=== PATIENT | female | born 1940 | race African-American/Black ===

== ENCOUNTER → 2017-11-21 | Outpatient (CLI) | payer MEDICARE, OTHER ==
[~2017-11-21] VITALS: Ht 167.6 cm; Wt 77.0 kg
[~2017-11-21] MED LIST: ADV250 IH; APIX5TAB PO; ASPI81TA39 PO; ATOR40TA28 PO; BUSP15 PO; CARV25 PO; CETI-290 PO; CLON.3 PO; DICL4100G TP; FLUO10TA3 PO; FLUT16H NASAL; FURO40 PO; IPRA4AER IH; MECL12.585 PO; METF500T4 PO; NITR.4 SL; OMEP20 PO; SLOWK8 PO
[2017-11-21 10:53] VITALS: BP 118/72
== END | disposition home or self-care (01) ==
LOC: SRCNTR 10:39
PROVIDERS: ATTEND Internal Medicine Clinical Cardiac Electrophysiology
DX: Z45.02 Encounter for adjustment and management of automatic implantable cardiac defibrillator (principal); I11.0 Hypertensive heart disease with heart failure; I50.22 Chronic systolic (congestive) heart failure; I48.91 Unspecified atrial fibrillation; E78.00 Pure hypercholesterolemia, unspecified; E11.9 Type 2 diabetes mellitus without complications; J44.9 Chronic obstructive pulmonary disease, unspecified; Z79.01 Long term (current) use of anticoagulants; Z79.82 Long term (current) use of aspirin; Z88.8 Allergy status to other drugs, medicaments and biological substances
CPT/HCPCS: G0463

== ENCOUNTER → 2019-01-04 | Outpatient (CLI) | payer MEDICARE, OTHER ==
[~2019-01-04] MED LIST changes: -CETI-290 PO; +CETI10TA59 PO; +METF-960 PO; -METF500T4 PO
[2019-01-04 15:14] LABS: BASOPHILS % (AUTO) 0.5 % (0.0-2.0); EOSINOPHILS % (AUTO) 6.5 % (1.0-6.0); HEMATOCRIT 32.3 % (36-46); HEMOGLOBIN 10.5 g/dL (12.0-16.0); LYMPHOCYTES # (AUTO) 1.7 K/uL (1.0-4.8); LYMPHOCYTES % (AUTO) 34.5 % (22.0-44.0); MEAN CORPUSCULAR HEMOGLOBIN 26.5 pg (26.0-34.0); MEAN CORPUSCULAR HGB CONC 32.3 G/dL (31.0-37.0); MEAN CORPUSCULAR VOLUME 82 fL (80-100); MONOCYTES # (AUTO) 0.7 K/uL (0.1-1.0); MONOCYTES % (AUTO) 14.3 % (2.0-9.0); NEUTROPHILS # (AUTO) 2.2 K/uL (1.8-7.7); NEUTROPHILS % (AUTO) 44.2 % (40.0-70.0); PLATELET COUNT (AUTO) 461 K/uL (150-450); RED BLOOD CELL COUNT(AUTO) 3.95 MIL/uL (4.00-5.20); RED CELL DISTRIBUTION WIDTH 17.2 % (11.5-14.5)
[2019-01-04 16:44] LABS: ALBUMIN 3.5 g/dL (3.4-5.0); BILIRUBIN,TOTAL 0.5 mg/dL (0.1-1.0); CALCIUM, TOTAL 9.7 mg/dL (8.8-10.5); CHOL/HDL RATIO 3.6 (3.9-5.7); CREATININE 1.83 mg/dL (0.60-1.30); MAGNESIUM 2.2 mg/dL (1.80-2.40); THYROID STIMULATING HORMONE 1.01 uIU/mL (0.36-3.74); TOTAL PROTEIN, SERUM 8.2 g/dL (6.4-8.2)
== END | disposition home or self-care (01) ==
LOC: LABPV 14:39
PROVIDERS: ATTEND Internal Medicine Cardiovascular Disease
DX: E55.9 Vitamin D deficiency, unspecified (principal); I11.0 Hypertensive heart disease with heart failure; I50.9 Heart failure, unspecified; E11.9 Type 2 diabetes mellitus without complications; D56.5 Hemoglobin E-beta thalassemia
CPT/HCPCS: 82306; 83036; 83735; 84443

== ENCOUNTER → 2019-09-20 | Outpatient (CLI) | payer MEDICARE, OTHER ==
[~2019-09-20] VITALS: Ht 172.7 cm; Wt 69.0 kg
[~2019-09-20] MED LIST changes: -ASPI81TA39 PO; -ATOR40TA28 PO; +CARV12 PO; -CARV25 PO; -CLON.3 PO; +CLON0.1T83 PO; +DULO20CA30 PO; +FERR-89 PO; -FLUO10TA3 PO; +FURO20 PO; -FURO40 PO; +GLIP5 PO; -MECL12.585 PO; -METF-960 PO; -NITR.4 SL; +NITR0.4T52 SL; +POTA8TAB60 PO; +ROSU10TA22 PO; -SLOWK8 PO
[2019-09-20 15:58] VITALS: BP 148/78
== END | disposition home or self-care (01) ==
LOC: SRCNTR 11:23
PROVIDERS: ATTEND Internal Medicine Clinical Cardiac Electrophysiology
DX: I48.91 Unspecified atrial fibrillation (principal); E78.00 Pure hypercholesterolemia, unspecified; I11.0 Hypertensive heart disease with heart failure; I50.9 Heart failure, unspecified; E11.9 Type 2 diabetes mellitus without complications; J44.9 Chronic obstructive pulmonary disease, unspecified; I49.9 Cardiac arrhythmia, unspecified; Z95.810 Presence of automatic (implantable) cardiac defibrillator
CPT/HCPCS: 93289; G0463

== ENCOUNTER 2019-11-04 16:11 | Emergency (ER) | payer MEDICARE, OTHER ==
[~2019-11-04] VITALS: Ht 167.6 cm; Wt 77.3 kg
[2019-11-04 16:29] LABS: GLUCOSE,POINT OF CARE 95 MG/DL (70-110)
[2019-11-04 16:54] LABS: BASOPHILS % (AUTO) 0.8 % (0.0-2.0); EOSINOPHILS % (AUTO) 8.9 % (1.0-6.0); HEMATOCRIT 32.1 % (36-46); HEMOGLOBIN 9.9 g/dL (12.0-16.0); LYMPHOCYTES % (AUTO) 24.7 % (22.0-44.0); MEAN CORPUSCULAR HEMOGLOBIN 23.8 pg (26.0-34.0); MEAN CORPUSCULAR VOLUME 77 fL (80-100); MONOCYTES # (AUTO) 0.6 K/uL (0.1-1.0); MONOCYTES % (AUTO) 14.7 % (2.0-9.0); NEUTROPHILS % (AUTO) 50.9 % (40.0-70.0); PLATELET COUNT (AUTO) 301 K/uL (150-450); RED BLOOD CELL COUNT(AUTO) 4.18 MIL/uL (4.00-5.20); RED CELL DISTRIBUTION WIDTH 16.7 % (11.5-14.5)
[2019-11-04 17:08] LABS: CALCIUM, TOTAL 9.4 mg/dL (8.8-10.5); CREATININE 1.76 mg/dL (0.60-1.30); POTASSIUM 4.3 mmol/L (3.5-5.1)
[2019-11-04 17:14] LABS: ALBUMIN 3.2 g/dL (3.4-5.0); BILIRUBIN,TOTAL 0.8 mg/dL (0.1-1.0); TOTAL PROTEIN, SERUM 7.3 g/dL (6.4-8.2)
[2019-11-04] MEDS ORDERED: PB/HYOSCY/ATR/SCOP/LIDO/MAALOX 55 ML BOTTLE PO ONE (17:45)
[2019-11-04] MEDS ORDERED: FAMOTIDINE 10 MG/ML 2 ML VIAL IVP ONE (17:45)
[2019-11-04 20:35] LABS: APPEARANCE,URINE CLOUDY (CLEAR); BILIRUBIN,URINE NEGATIVE (NEGATIVE); GLUCOSE, URINE (UA) NEGATIVE (NEGATIVE); KETONES,URINE NEGATIVE (NEGATIVE); LEUKOCYTE ESTERASE ,URINE MODERATE (NEGATIVE); NITRATE,URINE NEGATIVE (NEGATIVE); OCCULT BLOOD,URINE NEGATIVE (NEGATIVE); PROTEIN,URINE SEE CONFIRM (NEGATIVE)
[2019-11-04 20:50] LABS: SULFOSALICYLIC ACID,URINE 3+ (Negative)
[2019-11-04 20:51] LABS: BACTERIA,URINE Many /HPF (None Seen); SQUAMOUS EPITHELIAL CELL,UR Many /LPF (None Seen)
[2019-11-04 20:52] LABS: RBC,URINE 0-2 /HPF (0-2)
[2019-11-04] MEDS ORDERED: CefTRIAXone 1 GM/DEXTROSE 50 ML IV ONE (21:15)
[2019-11-04 21:40] VITALS: BP 143/88
== END 2019-11-04 21:57 | disposition home or self-care (01) ==
LOC: EMS 16:11
DX: I11.0 Hypertensive heart disease with heart failure (principal); I50.9 Heart failure, unspecified; N39.0 Urinary tract infection, site not specified; J44.9 Chronic obstructive pulmonary disease, unspecified; E11.9 Type 2 diabetes mellitus without complications; E78.00 Pure hypercholesterolemia, unspecified; Z79.899 Other long term (current) drug therapy; Z88.5 Allergy status to narcotic agent; Z88.8 Allergy status to other drugs, medicaments and biological substances; Z88.6 Allergy status to analgesic agent
CPT/HCPCS: 36415; 74176; 80053; 81001; 82962; 83690; 85025; 87086; 96365; 96375; 99284; J0696; J3490

== ENCOUNTER → 2020-03-06 | Outpatient (CLI) | payer MEDICARE, OTHER ==
[~2020-03-06] VITALS: Ht 167.6 cm; Wt 68.0 kg
[~2020-03-06] MED LIST changes: +CETI-450 PO; -CETI10TA59 PO; +DULO20CA27 PO; -DULO20CA30 PO
[2020-03-06 10:30] VITALS: BP 151/83
== END | disposition home or self-care (01) ==
LOC: SRCNTR 10:29
PROVIDERS: ATTEND Internal Medicine Clinical Cardiac Electrophysiology
DX: Z45.09 Encounter for adjustment and management of other cardiac device (principal); I48.91 Unspecified atrial fibrillation; I11.0 Hypertensive heart disease with heart failure; I50.22 Chronic systolic (congestive) heart failure; E78.5 Hyperlipidemia, unspecified
CPT/HCPCS: G0463

== ENCOUNTER → 2020-05-15 | Outpatient (CLI) | payer MEDICARE, OTHER ==
[~2020-05-15] VITALS: Ht 167.6 cm; Wt 68.0 kg
[2020-05-15 11:14] VITALS: BP 162/85
== END | disposition home or self-care (01) ==
LOC: SRCNTR 11:08
PROVIDERS: ATTEND Internal Medicine Clinical Cardiac Electrophysiology
DX: I50.22 Chronic systolic (congestive) heart failure (principal); I48.91 Unspecified atrial fibrillation; I50.9 Heart failure, unspecified; E78.5 Hyperlipidemia, unspecified; E11.9 Type 2 diabetes mellitus without complications; I10 Essential (primary) hypertension; J44.9 Chronic obstructive pulmonary disease, unspecified; Z95.810 Presence of automatic (implantable) cardiac defibrillator; Z88.8 Allergy status to other drugs, medicaments and biological substances; Z79.899 Other long term (current) drug therapy
CPT/HCPCS: 93289; G0463

== ENCOUNTER → 2020-05-28 | Outpatient (CLI) | payer MEDICARE, OTHER ==
[2020-05-28 11:24] VITALS: BP 126/61
== END | disposition home or self-care (01) ==
LOC: SRCNTR 11:22
PROVIDERS: ATTEND Internal Medicine Clinical Cardiac Electrophysiology
DX: Z45.02 Encounter for adjustment and management of automatic implantable cardiac defibrillator (principal)
CPT/HCPCS: G0463

== ENCOUNTER → 2020-06-05 | Outpatient (CLI) | payer MEDICARE, OTHER ==
[~2020-06-05] MED LIST changes: -ADV250 IH; +FLUT1DIS6 IH
[2020-06-05 14:26] VITALS: BP 120/70
== END | disposition home or self-care (01) ==
LOC: SRCNTR 12:07
PROVIDERS: ATTEND Internal Medicine Clinical Cardiac Electrophysiology
DX: Z45.018 Encounter for adjustment and management of other part of cardiac pacemaker (principal); I50.22 Chronic systolic (congestive) heart failure; E78.5 Hyperlipidemia, unspecified; I48.91 Unspecified atrial fibrillation
CPT/HCPCS: 93289; G0463

== ENCOUNTER → 2020-06-09 | Outpatient (CLI) | payer MEDICARE, OTHER ==
[2020-06-09 10:18] VITALS: BP 138/69
== END | disposition home or self-care (01) ==
LOC: SRCNTR 10:17
PROVIDERS: ATTEND Internal Medicine Clinical Cardiac Electrophysiology
DX: Z45.02 Encounter for adjustment and management of automatic implantable cardiac defibrillator (principal); I48.91 Unspecified atrial fibrillation; I50.22 Chronic systolic (congestive) heart failure; E78.5 Hyperlipidemia, unspecified
CPT/HCPCS: G0463; Z7500

== ENCOUNTER → 2020-06-12 | Outpatient (CLI) | payer MEDICARE, OTHER ==
[~2020-06-12] VITALS: Ht 167.6 cm; Wt 66.0 kg
[2020-06-12 09:54] VITALS: BP 137/70
== END | disposition home or self-care (01) ==
LOC: SRCNTR 09:51
PROVIDERS: ATTEND Internal Medicine Clinical Cardiac Electrophysiology
DX: Z45.02 Encounter for adjustment and management of automatic implantable cardiac defibrillator (principal)
CPT/HCPCS: G0463; Z7500

== ENCOUNTER → 2020-06-16 | Outpatient (CLI) | payer MEDICARE, OTHER ==
[~2020-06-16] VITALS: Ht 167.6 cm; Wt 66.0 kg
[2020-06-16 11:51] VITALS: BP 146/77
== END | disposition home or self-care (01) ==
LOC: SRCNTR 10:43
PROVIDERS: ATTEND Internal Medicine Clinical Cardiac Electrophysiology
DX: Z45.02 Encounter for adjustment and management of automatic implantable cardiac defibrillator (principal)
CPT/HCPCS: 93289; G0463

== ENCOUNTER → 2020-06-30 | Outpatient (CLI) | payer MEDICARE, OTHER ==
[~2020-06-30] VITALS: Ht 144.8 cm; Wt 65.0 kg
[2020-06-30 10:32] VITALS: BP 139/75
== END | disposition home or self-care (01) ==
LOC: SRCNTR 10:27
PROVIDERS: ATTEND Internal Medicine Clinical Cardiac Electrophysiology
DX: Z45.02 Encounter for adjustment and management of automatic implantable cardiac defibrillator (principal)
CPT/HCPCS: 93289; G0463

== ENCOUNTER 2020-11-27 10:16 | Emergency (ER) | payer MEDICARE, OTHER ==
[~2020-11-27] VITALS: Ht 167.6 cm; Wt 81.8 kg
[~2020-11-27 10:16] MED LIST changes: +CLON0.1T2 PO; -CLON0.1T83 PO; +POTA8TAB PO; -POTA8TAB60 PO
[2020-11-27 11:16] LABS: BASOPHILS % (AUTO) 1.1 % (0.0-2.0); HEMATOCRIT 32.7 % (36-46); HEMOGLOBIN 10.8 g/dL (12.0-16.0); LYMPHOCYTES # (AUTO) 1.7 K/uL (1.0-4.8); LYMPHOCYTES % (AUTO) 24.3 % (22.0-44.0); MEAN CORPUSCULAR VOLUME 85 fL (80-100); MONOCYTES # (AUTO) 0.7 K/uL (0.1-1.0); MONOCYTES % (AUTO) 10.9 % (2.0-9.0); NEUTROPHILS # (AUTO) 3.2 K/uL (1.8-7.7); NEUTROPHILS % (AUTO) 47.1 % (40.0-70.0); PLATELET COUNT (AUTO) 358 K/uL (150-450); RED BLOOD CELL COUNT(AUTO) 3.86 MIL/uL (4.00-5.20); RED CELL DISTRIBUTION WIDTH 15.8 % (11.5-14.5)
[2020-11-27 11:21] LABS: EOSINOPHILS % (AUTO) 16.6 % (1.0-6.0)
[2020-11-27 11:32] LABS: CALCIUM, TOTAL 9.4 mg/dL (8.8-10.5); CREATININE 2.09 mg/dL (0.60-1.30); POTASSIUM 3.2 mmol/L (3.5-5.1)
[2020-11-27 11:38] LABS: ALBUMIN 3.1 g/dL (3.4-5.0); BILIRUBIN,TOTAL 0.4 mg/dL (0.1-1.0); TOTAL PROTEIN, SERUM 7.6 g/dL (6.4-8.2)
[2020-11-27] MEDS ORDERED: CloNIDine HCL 0.1 MG TABLET PO ONE ×2 (12:00→13:30)
[2020-11-27 14:32] VITALS: BP 187/96
== END 2020-11-27 14:43 | disposition home or self-care (01) ==
LOC: EMS 10:18
DX: G40.A09 Absence epileptic syndrome, not intractable, without status epilepticus (principal); I11.0 Hypertensive heart disease with heart failure; I50.9 Heart failure, unspecified; E78.00 Pure hypercholesterolemia, unspecified; N18.6 End stage renal disease
CPT/HCPCS: 70450; 72170; 93005; 99285

== ENCOUNTER → 2021-01-26 | Outpatient (CLI) | payer MEDICARE, OTHER ==
[~2021-01-26] MED LIST changes: -ROSU10TA22 PO; +ROSU10TA72 PO
== END | disposition home or self-care (01) ==
LOC: SRCNTR 12:01
PROVIDERS: ATTEND Internal Medicine Clinical Cardiac Electrophysiology
DX: Z00.00 Encounter for general adult medical examination without abnormal findings (principal)
CPT/HCPCS: Q3014

== ENCOUNTER → 2021-01-29 | Outpatient (CLI) | payer MEDICARE, OTHER | END | disposition home or self-care (01) | LOC: SRCNTR 11:09 | PROVIDERS: ATTEND Internal Medicine Clinical Cardiac Electrophysiology | DX: Z00.00 Encounter for general adult medical examination without abnormal findings (principal) | CPT/HCPCS: Q3014 ==

== ENCOUNTER → 2021-02-05 | Outpatient (CLI) | payer MEDICARE, OTHER ==
[2021-02-05 12:02] VITALS: BP 141/77
== END | disposition home or self-care (01) ==
LOC: SRCNTR 10:48
PROVIDERS: ATTEND Internal Medicine Clinical Cardiac Electrophysiology
DX: Z45.02 Encounter for adjustment and management of automatic implantable cardiac defibrillator (principal)
CPT/HCPCS: 93289; G0463